=== PATIENT | male | born 1955 | race Caucasian/White ===

== ENCOUNTER 2017-05-04 12:52 | Inpatient (IN) | payer OTHER, MEDICARE ==
[~2017-05-04] VITALS: Ht 180.3 cm; Wt 94.1 kg
[~2017-05-04 12:52] MED LIST: ATOR10TA87 PO; CLOP75TA35 PO; LISI-600 PO; LOP25T PO; NITR0.4T51 SL; NO HOME MEDS
[2017-05-04 13:23] LABS: BASOPHILS % (AUTO) 0.3 % (0-1); EOSINOPHILS # (AUTO) 0.1 X10'3 (0-0.9); EOSINOPHILS % (AUTO) 1.1 % (0-6); HEMATOCRIT 47.7 % (42.0-52.0); HEMOGLOBIN 16.2 g/dl (14.0-17.9); LYMPHOCYTES # (AUTO) 2.3 X10'3 (1.1-4.8); LYMPHOCYTES % (AUTO) 23.9 % (21-51); MEAN CORPUSCULAR HEMOGLOBIN 32.1 PG (27.0-31.0); MEAN CORPUSCULAR VOLUME 94.2 FL (78-98); MEAN PLATELET VOLUME 7.8 FL (7.4-10.4); MONOCYTES # (AUTO) 0.7 X10'3 (0-0.9); NEUTROPHILS # (AUTO) 6.5 X10'3 (1.8-7.7); NEUTROPHILS % (AUTO) 67.7 % (42-75); PLATELET COUNT 254 X10'3 (140-440); RED BLOOD COUNT 5.06 X10'6 (4.70-6.10); RED CELL DISTRIBUTION WIDTH 12.9 % (11.5-14.5); WHITE BLOOD COUNT 9.6 X10'3 (4.5-11.0)
[2017-05-04 13:33] LABS: PARTIAL THROMBOPLASTIN TIME 26 SECONDS (22-32); PROTHROMBIN TIME 10.4 SECONDS (9.0-12.0)
[2017-05-04 13:40] LABS: ALANINE AMINOTRANSFERASE 40 U/L (12-78); ALBUMIN 4.2 G/DL (3.4-5.0); ALBUMIN/GLOBULIN RATIO 1.1 (1.1-1.5); ALKALINE PHOSPHATASE 93 IU/L (46-116); ANION GAP 10 (8-16); ASPARTATE AMINO TRANSFERASE 25 U/L (10-37); BILIRUBIN,TOTAL 0.7 MG/DL (0.1-1.0); BLOOD UREA NITROGEN 10 MG/DL (7-18); BUN/CREATININE RATIO 10.1 (5.4-32.0); CALCIUM 9.2 MG/DL (8.5-10.1); CHLORIDE 103 MMOL/L (99-107); CREATININE 0.99 MG/DL (0.60-1.10); GLUCOSE 114 MG/DL (70-104); POTASSIUM 3.8 MMOL/L (3.5-5.1); SODIUM 139 MMOL/L (135-145); TOTAL CARBON DIOXIDE 26.5 MMOL/L (24-32); TOTAL PROTEIN 8.1 G/DL (6.4-8.2); eGFR 77 ML/MIN
[2017-05-04 13:45] LABS: CLARITY,URINE CLEAR (Clear); COLOR,URINE YELLOW (Yellow); GLUCOSE, URINE NEGATIVE (Neg); KETONES,URINE NEGATIVE (Neg); LEUKOCYTE ESTERASE ,URINE NEGATIVE (Neg); NITRITES, URINE NEGATIVE (Neg); OCCULT BLOOD,URINE TRACE-INTACT (Neg); PROTEIN,URINE NEGATIVE (Neg); UA COLLECTION TYPE CLN CATCH MIDSTREAM; UROBILINOGEN,URINE 0.2 E.U/dL (0.2-1.0)
[2017-05-04 13:54] LABS: BACTERIA,URINE FEW /HPF (Neg); MUCUS STRANDS FEW /LPF (Neg); SQUAMOUS EPITHELIAL CELL,UR FEW /LPF (FEW); WBC,URINE 0-4 /HPF (0-4)
[2017-05-04] MEDS ORDERED: ibuprofen tablet 400 MG TABLET PO ONE (15:35)
[2017-05-04] MEDS ORDERED: ASPI-1265 PO (15:48)
[2017-05-04] MEDS ORDERED: IBUP-1984 PO (15:49)
[2017-05-04] MEDS ORDERED: magnesium 4gm in 100ml NS 100 ML IV PRN (16:15)
[2017-05-04] MEDS ORDERED: MORPHINE 2MG in 2ml NS syringe IV PRN (16:15)
[2017-05-04] MEDS ORDERED: cloNIDine 0.1 mg tablet PO PRN (16:15)
[2017-05-04] MEDS ORDERED: magnesium hydroxide 30ml (MOM) UD suspension PO PRN (16:15)
[2017-05-04] MEDS ORDERED: HYDROcodone/acetaminophen 10/325mg tab PO PRN (16:15)
[2017-05-04] MEDS ORDERED: magnesium Cl slow-release 64mg tablet PO PRN (16:15)
[2017-05-04] MEDS ORDERED: potassium Cl 20 mEq SR tablet PO PRN ×2 (16:15)
[2017-05-04] MEDS ORDERED: acetaminophen 325mg tablet PO PRN (16:15)
[2017-05-04] MEDS ORDERED: HYDROcodone/acetaminophen 5mg/325mg tablet PO PRN (16:15)
[2017-05-04] MEDS ORDERED: magnesium 2GM in 50ml NS 50 ML IV PRN (16:15)
[2017-05-04] MEDS ORDERED: potassium Cl 40MEQ/NS 500ml 500 ML IV PRN ×2 (16:15)
[2017-05-04] MEDS ORDERED: mag hydrox/Alum hydrox/simeth 30ml oral suspension PO PRN (16:15)
[2017-05-04] MEDS ORDERED: ondansetron/PF 4mg/2ml inj IV PRN (16:15)
[2017-05-04] MEDS ORDERED: regadenoson 0.4mg/5ml syringe IV ONE (16:20)
[2017-05-04] MEDS ORDERED: nitroGLYCERIN 0.4mg SUBLingual tab SL PRN (16:20)
[2017-05-04] MEDS ORDERED: metoprolol tartrate 1mg/ml inj IV PRN (16:20)
[2017-05-04] MEDS ORDERED: aminophylline 250mg/10ml inj. IV PRN (16:20)
[2017-05-04] MEDS: metoprolol tartrate 50mg tablet PO SCH ×2 (17:46→21:27)
[2017-05-04] MEDS: nitroGLYCERIN 1gm ointment UD TP SCH (17:47)
[2017-05-04] MEDS ORDERED: temazepam 15mg capsule PO PRN (21:00)
[2017-05-04] MEDS ORDERED: regadenoson 0.4mg/5ml syringe IV PRN (21:20)
[2017-05-05] VITALS (10 sets, daily range): BP systolic 160–205; BP diastolic 96–133
[2017-05-05] MEDS: acetaminophen 325mg tablet PO PRN ×2 (00:17→09:53)
[2017-05-05] MEDS: nitroGLYCERIN 1gm ointment UD TP SCH ×4 (00:18→23:26)
[2017-05-05 01:27] LABS: BASOPHILS # (AUTO) 0.1 X10'3 (0-0.2); BASOPHILS % (AUTO) 0.8 % (0-1); EOSINOPHILS # (AUTO) 0.3 X10'3 (0-0.9); EOSINOPHILS % (AUTO) 2.9 % (0-6); HEMATOCRIT 45.2 % (42.0-52.0); HEMOGLOBIN 15.2 g/dl (14.0-17.9); LYMPHOCYTES % (AUTO) 31.3 % (21-51); MEAN CORPUSCULAR HEMOGLOBIN 31.5 PG (27.0-31.0); MEAN CORPUSCULAR HGB CONC 33.7 % (33.0-36.5); MEAN CORPUSCULAR VOLUME 93.5 FL (78-98); MEAN PLATELET VOLUME 8.4 FL (7.4-10.4); MONOCYTES # (AUTO) 1.1 X10'3 (0-0.9); MONOCYTES % (AUTO) 11.3 % (2-12); NEUTROPHILS # (AUTO) 5.1 X10'3 (1.8-7.7); NEUTROPHILS % (AUTO) 53.7 % (42-75); PLATELET COUNT 243 X10'3 (140-440); RED BLOOD COUNT 4.84 X10'6 (4.70-6.10); RED CELL DISTRIBUTION WIDTH 12.4 % (11.5-14.5); WHITE BLOOD COUNT 9.6 X10'3 (4.5-11.0)
[2017-05-05 01:43] LABS: ALBUMIN 3.6 G/DL (3.4-5.0); ANION GAP 8 (8-16); BLOOD UREA NITROGEN 15 MG/DL (7-18); BUN/CREATININE RATIO 14.9 (5.4-32.0); CALCIUM 8.7 MG/DL (8.5-10.1); CHLORIDE 104 MMOL/L (99-107); CREATININE 1.01 MG/DL (0.60-1.10); GLUCOSE 102 MG/DL (70-104); MAGNESIUM 2.1 MG/DL (1.5-2.4); POTASSIUM 3.7 MMOL/L (3.5-5.1); SODIUM 139 MMOL/L (135-145); TOTAL CARBON DIOXIDE 26.9 MMOL/L (24-32); eGFR 75 ML/MIN
[2017-05-05] MEDS: enoxaparin 40mg/0.4ml syringe SUBCUT SCH (08:00)
[2017-05-05] MEDS: K and/or MAG REPLACEMENT MC SCH (08:00)
[2017-05-05] MEDS ORDERED: regadenoson 0.4mg/5ml syringe IV PRN (08:00)
[2017-05-05] MEDS: aspirin 81mg tab.chew PO SCH (08:49)
[2017-05-05] MEDS: metoprolol tartrate 50mg tablet PO SCH ×2 (08:49→19:20)
[2017-05-05] MEDS: enoxaparin 40mg/0.4ml syringe SQ SCH (08:50)
[2017-05-05] MEDS ORDERED: regadenoson 0.4mg/5ml syringe IV ONE (10:30)
[2017-05-05] MEDS ORDERED: aminophylline inj. 0 ML IV ONE (10:30)
[2017-05-05] MEDS: lisinopril 20mg tablet PO SCH (12:28)
[2017-05-05] MEDS ORDERED: hyDRALAzine 10mg tablet PO ONE (17:30)
[2017-05-05] MEDS ORDERED: morphine 4 MG/ML inj SYRINge IV PRN (19:59)
[2017-05-05] MEDS: hyDRALAzine 10mg tablet PO SCH (23:26)
[2017-05-06 02:00] VITALS: BP 148/99
[2017-05-06 06:00] VITALS: BP 156/101
[2017-05-06 06:41] LABS: BASOPHILS % (AUTO) 0.3 % (0-1); EOSINOPHILS # (AUTO) 0.2 X10'3 (0-0.9); EOSINOPHILS % (AUTO) 2.1 % (0-6); HEMATOCRIT 46.3 % (42.0-52.0); HEMOGLOBIN 16.2 g/dl (14.0-17.9); LYMPHOCYTES % (AUTO) 28.7 % (21-51); MEAN CORPUSCULAR HEMOGLOBIN 32.6 PG (27.0-31.0); MEAN CORPUSCULAR HGB CONC 35.1 % (33.0-36.5); MEAN CORPUSCULAR VOLUME 92.9 FL (78-98); MEAN PLATELET VOLUME 7.9 FL (7.4-10.4); MONOCYTES # (AUTO) 0.9 X10'3 (0-0.9); MONOCYTES % (AUTO) 8.9 % (2-12); NEUTROPHILS # (AUTO) 6.4 X10'3 (1.8-7.7); PLATELET COUNT 247 X10'3 (140-440); RED BLOOD COUNT 4.98 X10'6 (4.70-6.10); RED CELL DISTRIBUTION WIDTH 13.3 % (11.5-14.5); WHITE BLOOD COUNT 10.6 X10'3 (4.5-11.0)
[2017-05-06 07:03] LABS: ALBUMIN 3.7 G/DL (3.4-5.0); ANION GAP 7 (8-16); BLOOD UREA NITROGEN 17 MG/DL (7-18); BUN/CREATININE RATIO 16.2 (5.4-32.0); CALCIUM 9.2 MG/DL (8.5-10.1); CHLORIDE 103 MMOL/L (99-107); CHOL/HDL RATIO 4.1 (0.00-4.99); CHOLESTEROL 239 MG/DL (0-200); CREATININE 1.05 MG/DL (0.60-1.10); GLUCOSE 94 MG/DL (70-104); HDL CHOLESTEROL 59 MG/DL (35-60); LDL CHOLESTEROL 156 MG/DL (50-100); POTASSIUM 4.3 MMOL/L (3.5-5.1); SODIUM 140 MMOL/L (135-145); TOTAL CARBON DIOXIDE 30.4 MMOL/L (24-32); TRIGLYCERIDES 130 MG/DL (20-135); eGFR 72 ML/MIN
[2017-05-06 07:34] LABS: HEMOGLOBIN A1C 5.3 % (4.5-6.2)
[2017-05-06] MEDS: K and/or MAG REPLACEMENT MC SCH (08:00)
[2017-05-06] MEDS ORDERED: atorvastatin 20mg tablet PO SCH (08:00)
[2017-05-06] MEDS: nitroGLYCERIN 1gm ointment UD TP SCH (08:00)
[2017-05-06] MEDS: enoxaparin 40mg/0.4ml syringe SUBCUT SCH (08:00)
[2017-05-06] MEDS: enoxaparin 40mg/0.4ml syringe SQ SCH (08:13)
[2017-05-06] MEDS: hyDRALAzine 10mg tablet PO SCH (08:18)
[2017-05-06] MEDS: aspirin 81mg tab.chew PO SCH (08:19)
[2017-05-06] MEDS: lisinopril 20mg tablet PO SCH (08:19)
[2017-05-06] MEDS: metoprolol tartrate 50mg tablet PO SCH (08:19)
[2017-05-06 11:00] VITALS: BP 139/91
[2017-05-06] MEDS ORDERED: ATOR20TA66 PO (12:50)
[2017-05-06] MEDS ORDERED: METO50TA16 PO (12:50)
[2017-05-06] MEDS ORDERED: LISI-600 PO (12:50)
[2017-05-06] MEDS ORDERED: hyDRALAzine tablet PO (12:50)
[2017-05-06] MEDS ORDERED: AMLO5TAB4 PO (12:50)
== END 2017-05-06 14:00 | disposition home or self-care (01) | DRG 305 ==
LOC: ER 12:55 → ED HOLD 16:14 → PCU 3S 05-05 15:43
PROVIDERS: ADMIT Internal Medicine; ATTEND Legal Medicine
PROC: 4A02XM4 Measurement of Cardiac Total Activity, External Approach (ICD-10-PCS; principal; 2017-05-05)
PROC: 3E073KZ Introduction of Other Diagnostic Substance into Coronary Artery, Percutaneous Approach (ICD-10-PCS; 2017-05-05)
DX: I16.9 Hypertensive crisis, unspecified (principal); E66.8 Other obesity; G44.209 Tension-type headache, unspecified, not intractable; I10 Essential (primary) hypertension; R07.9 Chest pain, unspecified; I25.10 Atherosclerotic heart disease of native coronary artery without angina pectoris; I25.2 Old myocardial infarction; Z79.899 Other long term (current) drug therapy; Z68.28 Body mass index [BMI] 28.0-28.9, adult
CPT/HCPCS: 36415; 71045; 78452; 80048; 80053; 80061; 81001; 83036; 83735; 84484; 85025; 85610; 85730; 87070; 93005; 93017; 93306; 99285; A9500; J0280; J1650